=== PATIENT | female | born 1990 | race Caucasian/White ===

== ENCOUNTER 2018-04-06 04:29 | Emergency (ER) | payer MEDICAID, OTHER ==
[2018-04-06 04:52] VITALS: BP 108/86
[2018-04-06] MEDS ORDERED: Zofran 4 MG/2 ML VIAL IV ONE (05:06)
[2018-04-06] MEDS ORDERED: MORPHINE SULFATE 4 MG INJ IV ONE (05:06)
[2018-04-06] MEDS ORDERED: TORAdol 30 mg Injection IV ONE (05:06)
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
[2018-04-06] MEDS ORDERED: Zofran 4 MG/2 ML VIAL ONE (05:10)
[2018-04-06] MEDS ORDERED: MORPHINE SULFATE 4 MG INJ ONE (05:10)
[2018-04-06] MEDS ORDERED: Sodium Chloride 0.9% 500 ML 500 ML IV ONE (05:10)
[2018-04-06] MEDS ORDERED: TORAdol 30 mg Injection ONE (05:21)
[2018-04-06 06:50] VITALS: PULSE 102
[2018-04-06 07:34] VITALS: O2SAT 97
--- NOTE | 2018-04-06 08:33 | XRAY ---
Indication: Pain following fall. Comparison: None 3 views of the right elbow demonstrates normal bones, articulation, and soft tissues. Comment: Preliminary interpretation was made by [facility]. No discrepancy.
--- NOTE | 2018-04-06 08:33 | XRAY ---
Indication: Pain following fall. Comparison: None 2 views of the right forearm obtained. No bony, articular, or soft tissue abnormalities.
== END 2018-04-06 07:53 | disposition home or self-care (01) ==
LOC: ED 04:29
DX: S50.11XA Contusion of right forearm, initial encounter (principal); W10.9XXA Fall (on) (from) unspecified stairs and steps, initial encounter; Y92.009 Unspecified place in unspecified non-institutional (private) residence as the place of occurrence of the external cause
CPT/HCPCS: 36000; 73080; 73090; 96374; 96375; 99284; J1885; J2270; J2405

== ENCOUNTER 2018-04-12 10:15 | Emergency (ER) | payer OTHER ==
[2018-04-12] MEDS ORDERED: TYLENOL EXTRA STRENGTH 500 MG PO STA (10:43)
[2018-04-12] MEDS ORDERED: TYLENOL EXTRA STRENGTH 500 MG ONE (10:47)
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
[2018-04-12 11:02] LABS: Appearance CLEAR (CLEAR); Bilirubin NEGATIVE (NEGATIVE); Blood NEGATIVE Ery/ul (0-5); Glucose NEGATIVE (NEGATIVE); Ketones NEGATIVE (NEGATIVE); Leukocyte Esterase TRACE (NEGATIVE); Nitrite NEGATIVE (NEGATIVE); Protein,Urine Dip NEGATIVE (Negative); Specific Gravity 1.015 (1.005-1.025); Urobilinogen NORMAL mg/dL (0-1)
[2018-04-12 11:09] LABS: Mucus SLIGHT /HPF (NEGATIVE)
[2018-04-12 11:10] LABS: Bacteria FEW /HPF (NEGATIVE); Epithelial Cells FEW /HPF (FEW); WBC 0-2 /HPF (0-5)
[2018-04-12 11:17] LABS: BASOPHIL % 0.1 % (0.0-0.4); Basophil (Absolute #) 0.01 (0-0.4); Eosinophil % 2.8 % (0.00-5.0); Eosinophil (Absolute #) 0.22 (0-0.5); Granulocyte Absolute (ANC) 5.43 (1.4-6.9); Granulocytes % 69.8 % (36.0-66.0); Hematocrit 43.1 % (35-47); Hemoglobin 14.8 gm/dl (12.0-16.0); Lymphocyte (Absolute #) 1.53 (1.0-4.6); Lymphocytes % 19.7 % (24.0-44.0); Mean Cell Volume 96.2 fl (78-100); Mean Corpuscular Hgb Concent. 34.3 g/dl (32-36); Mean Platelet Volume 10.2 fl (6-9.5); Monocyte (Absolute #) 0.59 (0.0-1.3); Monocytes % 7.6 % (0.0-12.0); Platelet Count 191 K/mm3 (150-450); Red Blood Count 4.48 M/mm3 (4.1-5.4); White Blood Count 7.8 K/mm3 (4.0-10.5)
[2018-04-12 11:22] LABS: ALBUMIN 4.7 g/dL (3.5-5.0); ALKALINE PHOSPHATASE 45 U/L (38-126); ANION GAP 17.3 MEQ/L (5-15); BLOOD UREA NITROGEN 9 mg/dL (7-17); CHLORIDE 106 mmol/L (98-107); Calcium 9.1 mg/dL (8.4-10.2); Carbon Dioxide 22 mmol/L (22-30); Creatinine 1 0.68 mg/dL (0.52-1.04); ETHYL ALCOHOL 16 mg/dL (0-10); Glucose 80 mg/dL (74-106); Potassium 3.8 mmol/L (3.5-5.1); SGOT/AST 58 U/L (14-36); SGPT/ALT 46 U/L (0-35); SODIUM 142 mmol/L (137-145); Total Protein 7.8 g/dL (6.3-8.2)
[2018-04-12 11:25] LABS: ACETAMINOPHEN < 10 ug/ml (10-30); SALICYLATE < 1.0 mg/dL (2-20)
[2018-04-12 11:29] LABS: Amphetamine,Urine NEGATIVE (NEGATIVE); Barbiturate,Urine NEGATIVE (NEGATIVE); Benzodiazepine,Urine NEGATIVE (NEGATIVE); Cocaine,Urine NEGATIVE (NEGATIVE); Methadone,Urine NEGATIVE (NEGATIVE); Opiate,Urine NEGATIVE (NEGATIVE); PCP,Urine NEGATIVE (NEGATIVE); THC,Urine NEGATIVE (NEGATIVE)
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
[2018-04-12 12:50] VITALS: BP 140/74; PULSE 95; O2SAT 98
== END 2018-04-12 12:50 | disposition home or self-care (01) ==
LOC: ED 10:15
DX: F10.10 Alcohol abuse, uncomplicated (principal); Z72.89 Other problems related to lifestyle; R51 Headache; S00.12XA Contusion of left eyelid and periocular area, initial encounter; S00.11XA Contusion of right eyelid and periocular area, initial encounter; X83.8XXA Intentional self-harm by other specified means, initial encounter
CPT/HCPCS: 36415; 70487; 80053; 80307; 81000; 84703; 85025; 99284; G0481; A9270-GY; G0480

== ENCOUNTER 2019-11-16 09:55 | Emergency (ER) | payer BC, OTHER ==
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
[2019-11-16] MEDS ORDERED: TORAdol 30 mg Injection IM ONE (10:14)
[2019-11-16] MEDS ORDERED: TORAdol 30 mg Injection ONE ×2 (10:20→10:22)
[2019-11-16] MEDS ORDERED: SILVADENE 50 GM TP ONE ×2 (10:36→10:40)
[2019-11-16 10:59] VITALS: BP 118/51; PULSE 83; O2SAT 100
== END 2019-11-16 11:17 | disposition home or self-care (01) ==
LOC: ED 09:55
DX: T21.14XA Burn of first degree of lower back, initial encounter (principal); W89.1XXA Exposure to tanning bed, initial encounter
CPT/HCPCS: 96372; 99283; J1885; A9270-GY